=== PATIENT | female | born 1940 | race Caucasian/White ===

== ENCOUNTER 2018-04-15 10:31 | Emergency (ER) | payer MEDICARE ==
[~2018-04-15] VITALS: Ht 160 cm; Wt 64.6 kg
[2018-04-15 10:34] VITALS: BP 174/76
--- NOTE | 2018-04-15 10:53 | NUR ---
Assumed care of patient. C/O left lower leg pain x 4 days. Family member at bedside. Will continue to monitor.
--- NOTE | 2018-04-15 12:01 | NUR ---
Resting in [facility]. No needs.
--- NOTE | 2018-04-15 13:18 | NUR ---
Demetrice aguayo in [facility] - 04/15/18 at 1319 by MERCED IV started by ROSENDO Santo.
--- NOTE | 2018-04-15 13:19 | NUR ---
Patient/Caregiver given discharge instructions and they have confirmed that they understand the instructions. Patient ambulatory with steady gait.
== END 2018-04-15 13:19 | disposition home or self-care (01) ==
LOC: ED 10:47
DX: M77.9 Enthesopathy, unspecified (principal); E11.9 Type 2 diabetes mellitus without complications
CPT/HCPCS: 99284

== ENCOUNTER 2018-05-29 20:06 | Inpatient (IN) | payer MEDICARE ==
[~2018-05-29] VITALS: Ht 160 cm; Wt 67.4 kg
--- NOTE | 2018-05-29 20:33 | NUR ---
TRIPPED ON DOG LEASH AND FELL, STRUCK HEAD ON CORNER OF COUCH, DENIES LOC, LAC ON BACK OF HEAD, BLEEDING CONTROLLED, PT STATES PAIN IMPROVING, PA AT BEDSIDE Addendum: 05/29/18 at 2033 by DEMARCO CALL LIGHT IN REACH, FAMILY AT BEDSIDE
[2018-05-29] MEDS ORDERED: SODIUM CHLORIDE FLUSH 10ML SYR IVF ONE (21:00)
[2018-05-29 21:23] LABS: BASOPHILS # (AUTO) 0.03 x10^3/uL (0-0.1); BASOPHILS % (AUTO) 0 % (0-1); EOSINOPHILS # (AUTO) 0.05 x10^3/uL (0-0.4); EOSINOPHILS % (AUTO) 1 % (1-7); LYMPHOCYTES # (AUTO) 1.92 x10^3/uL (1-3.4); LYMPHOCYTES % (AUTO) 27 % (22-44); MD NO; MEAN CORPUSCULAR HEMOGLOBIN 30.9 pg (27.0-34.8); MEAN CORPUSCULAR HGB CONC 33.3 g/dL (32.4-35.8); MEAN CORPUSCULAR VOLUME 92.7 fL (80-100); MEAN PLATELET VOLUME 7.7 fL (7.4-10.4); MONOCYTES % (AUTO) 8 % (2-9); NEUTROPHILS # (AUTO) 4.48 x10^3/uL (1.8-6.8); NEUTROPHILS % (AUTO) 63 % (42-75); PLATELET COUNT 253 x10^3/uL (130-400); RED BLOOD COUNT 4.11 x10^6/uL (3.82-5.3)
[2018-05-29] MEDS ORDERED: ACETAMINOPHEN 325 MG TABLET PO ONE (21:30)
[2018-05-29 21:33] LABS: INTERNATIONAL NORMALIZED RATIO 0.95 (0.93-1.1)
[2018-05-29 21:34] LABS: ALBUMIN 3.8 g/dL (3.4-5.0); ANION GAP 6 mmol/L (5-15); CALCIUM 8.5 mg/dL (8.5-10.1); CHLORIDE 105 mmol/L (98-107); CREATININE 0.62 mg/dL (0.55-1.02)
[2018-05-29] MEDS ORDERED: ACETAMINOPHEN 325 MG TABLET ONE (21:45)
[2018-05-29] MEDS ORDERED: METF500T17 PO (21:57)
[2018-05-29] MEDS ORDERED: LISI-170 PO (21:57)
[2018-05-29] MEDS ORDERED: SIMV20TA3 PO (21:57)
[2018-05-29] MEDS ORDERED: LIDOCAINE-MPF 1%, 5ML ONE (22:25)
[2018-05-29] MEDS ORDERED: SODIUM CHLORIDE 0.9% 1,000 ML IV SCH (22:27)
[2018-05-29] MEDS ORDERED: ONDANSETRON 2MG/ML, 2ML IVPush PRN (22:30)
[2018-05-29] MEDS ORDERED: PROMETHAZINE 25 MG/ML, 1ML IM PRN (22:30)
[2018-05-29] MEDS ORDERED: hydrALAzine 20 MG/ML, 1ML IVPush PRN (22:30)
[2018-05-29] MEDS ORDERED: POLYETHYLENE GLYCOL 17 GM PACKET PO PRN (22:30)
[2018-05-29] MEDS ORDERED: BISACODYL 10 MG SUPP PR PRN (22:30)
[2018-05-29] MEDS ORDERED: morphine SULFATE 10 MG/ML, 1ML IVPush PRN (22:30)
[2018-05-29] MEDS ORDERED: DOCUSATE 100 MG CAPSULE PO PRN (22:30)
[2018-05-29] MEDS ORDERED: LABETALOL 5 MG/ML SYRINGE IVPush PRN (22:30)
[2018-05-29] MEDS ORDERED: ONDANSETRON ODT 4 MG PO PRN (22:30)
--- NOTE | 2018-05-29 22:35 | NUR ---
[facility] AT TO EVAL PT. FOR ADMISSION. PT. HAS NO NEURO DEIFICITS NOTED. PT. HAD AMBUALTED TO BR WITH STEADY GAIT WITH FAMILY MEMBER. PT. AND FAMILY TOLD THAT PT. WILL NEED TO USE BS COMMODE FROM NOW ON AND REFRAIN FROM AMBULATING; THEY VERBALIZEDUNDERSTANDING OF THIS. PT. IS A&O X 4 AND LORENZO X 4 EQUALLY. FAMILY AT FOR SUPPORT. ALL MONITORS REMAIN IN PLACE.
[2018-05-29] MEDS ORDERED: metFORMIN 500 MG TABLET PO SCH (23:00)
[2018-05-29] MEDS ORDERED: SIMVASTATIN 20 MG TABLET PO SCH (23:00)
[2018-05-29] MEDS ORDERED: LISINOPRIL 20 MG TABLET PO SCH (23:00)
--- NOTE | 2018-05-29 23:08 | NUR ---
PT. PROVIDED WITH MILK AFTER OK FROM DR. UMAÑA; HE STATED THAT PT. COULD BE NPO AFTER MIDNIGHT. PT. TOOK OWN DOSE OF METFORMIN AND DR. UMAÑA AWARE OF THIS AND STATED THAT WAS OK WITH HIM. PT. DENIES ANY OTHER NEEDS, FAMILY REMAINS AT BS FOR SUPPORT. CALL LIGHT IN REACH. ALL SAFETY MEASUERS OBSERVED.
[2018-05-29 23:18] LABS: FREE T4 (FREE THYROXINE) 1.25 ng/dL (0.76-1.46); THYROID STIMULATING HORMONE 1.2 mIU/L (0.358-3.740)
[2018-05-29 23:25] LABS: HEMOGLOBIN A1C 7.1 % (4.2-6.3)
--- NOTE | 2018-05-29 23:27 | NUR ---
PT. HAD TAKEN ON SIMVISTATIN WHEN SHE TOOK HER METFORMIN. PT. AND FAMILY BOTH MADE AWARE THAT PT. NOT TO TAKE OWN MEDS ANYMORE WHILE IN HOSPITAL AND THEY VERBALIZE UNDERSTANDING OF THIS. NO NEURO CHANGES NOTED; LORENZO X 4 EQUALLY. PT. DENIES NEEDS. AWATING PLACEMENT UPSTAIRS.
[2018-05-29] MEDS ORDERED: LISINOPRIL 20 MG TABLET ONE (23:47)
--- NOTE | 2018-05-29 23:54 | NUR ---
REPORT TO MAURICIO NGUYEN. FLOOR READY FOR PT. TRANSPORT.
[2018-05-30 00:17] VITALS: BP 146/81
[2018-05-30] MEDS: ACETAMINOPHEN 325 MG TABLET PO PRN ×2 (03:23→03:25)
[2018-05-30 05:11] LABS: BASOPHILS # (AUTO) 0.04 x10^3/uL (0-0.1); BASOPHILS % (AUTO) 1 % (0-1); EOSINOPHILS # (AUTO) 0.03 x10^3/uL (0-0.4); EOSINOPHILS % (AUTO) 0 % (1-7); LYMPHOCYTES # (AUTO) 1.99 x10^3/uL (1-3.4); LYMPHOCYTES % (AUTO) 27 % (22-44); MD NO; MEAN CORPUSCULAR HEMOGLOBIN 30.5 pg (27.0-34.8); MEAN CORPUSCULAR VOLUME 92.3 fL (80-100); MEAN PLATELET VOLUME 8.1 fL (7.4-10.4); MONOCYTES # (AUTO) 0.64 x10^3/uL (0.2-0.8); MONOCYTES % (AUTO) 9 % (2-9); NEUTROPHILS # (AUTO) 4.69 x10^3/uL (1.8-6.8); NEUTROPHILS % (AUTO) 64 % (42-75); PLATELET COUNT 246 x10^3/uL (130-400); RED BLOOD COUNT 3.88 x10^6/uL (3.82-5.3)
[2018-05-30 05:19] LABS: ALBUMIN 3.2 g/dL (3.4-5.0); ANION GAP 7 mmol/L (5-15); CALCIUM 8.2 mg/dL (8.5-10.1); CHLORIDE 108 mmol/L (98-107)
[2018-05-30 05:25] LABS: ALANINE AMINOTRANSFERASE 14 U/L (12-78); ALKALINE PHOSPHATASE 77 U/L (45-117); BILIRUBIN,TOTAL 0.4 mg/dL (0.2-1.0); CHOL/HDL RATIO 2.4; CHOLESTEROL, TOTAL 156 mg/dL (140-239); CREATININE 0.52 mg/dL (0.55-1.02); HDL CHOL % 42 % (28-40); HDL CHOLESTEROL (DIRECT) 66 mg/dL (40-60); LDL CHOLESTEROL,CALCULATED 74 mg/dL (54-169); LDL/HDL RATIO 1.1 (0.5-3.0); TOTAL PROTEIN 6.3 g/dL (6.4-8.2); TRIGLYCERIDES 80 mg/dL (50-200); VLDL CHOLESTEROL 16 mg/dL (0-25)
== END 2018-05-30 12:37 | disposition home health service (06) | DRG 87 ==
LOC: ED 21:21 → EDIP 21:22 → CCU 05-30 00:08 → DCLOUNGE 05-30 12:22
PROVIDERS: ADMIT Internal Medicine; ATTEND Internal Medicine
PROC: 0HQ0XZZ Repair Scalp Skin, External Approach (ICD-10-PCS; principal; 2018-05-29)
DX: S06.5X0A Traumatic subdural hemorrhage without loss of consciousness, initial encounter (principal); E11.9 Type 2 diabetes mellitus without complications; E78.5 Hyperlipidemia, unspecified; I10 Essential (primary) hypertension; S01.01XA Laceration without foreign body of scalp, initial encounter; W01.0XXA Fall on same level from slipping, tripping and stumbling without subsequent striking against object, initial encounter; Y93.K1 Activity, walking an animal; Y92.89 Other specified places as the place of occurrence of the external cause; Y99.8 Other external cause status; Z90.710 Acquired absence of both cervix and uterus
CPT/HCPCS: 36415; 70450; 72125; 80048; 80053; 80061; 82040; 83036; 83735; 84439; 84443; 85025; 85610; 85730; 87081; J7030